=== PATIENT | female | born 1945 | race Caucasian/White ===

== ENCOUNTER 2019-07-08 04:17 | Inpatient (IN) ==
[2019-07-08] MEDS ORDERED: MORPHINE 4 MG/1 ML VIAL IV STA (06:09)
[2019-07-08] MEDS ORDERED: ONDANSETRON 4 MG/2 ML VIAL IV ONE (06:09)
[2019-07-08 07:26] LABS: Basophils % 0.5 % (0.0-0.8); Eosinophils % 0.2 % (0.00-10.9); Hematocrit 35.4 VOL% (35.7-47.0); Immature Granulocytes % 0.2 %; Immature Granulocytes Absolute 0.01 #; Lymphocytes # 0.9 10*3/uL (1.4-4.0); Lymphocytes % 15.1 % (21.3-54.2); Mean Corpuscular HGB Conc 31.1 GM/DL (32-36); Mean Corpuscular Volume 85.9 FL (87-102); Mean Platelet Volume 14.3 FL (9.6-12.0); Monocytes % 14.9 % (1.7-12.7); Neutrophils % 69.1 % (38.7-73.9); Platelet Count 92 T/CUMM (130-400); Red Blood Count 4.12 MC/CUMM (3.8-5.5); Red Cell Distribution Width 13.2 % (9.3-17.3); White Blood Count 5.6 T/CUMM (4-12)
[2019-07-08 07:44] LABS: Albumin 3.8 G/DL (3.4-5.0); Anisocytosis 1+; Calcium 9.2 MG/DL (8.5-10.1); Osmolality,Calculated 289.7 MOS/KG (273-304); Platelet Estimate Decreased; Poikilocytosis Slight; Total Protein 6.8 G/DL (6.4-8.3)
[2019-07-08 08:19] LABS: INR 0.9
[2019-07-08] MEDS: MORPHINE 4 MG/1 ML VIAL IV PRN (09:43)
[2019-07-08] MEDS: PANTOPRAZOLE 40 MG TABLET PO SCH (09:44)
[2019-07-08] MEDS: SODIUM CHLORIDE 0.9% 1,000 ML IV SCH (10:59)
[2019-07-08] MEDS ORDERED: VANCOMYCIN 1,000 MG VIAL ONE (17:01)
[2019-07-08] MEDS ORDERED: ceFAZolin 1,000 MG VIAL ONE (17:01)
[2019-07-08] MEDS ORDERED: BACITRACIN 50,000 UNIT VIAL ONE ×2 (17:45→17:50)
[2019-07-08] MEDS: ceFAZolin 1,000 MG in SYRINGE 1 EACH IV SCH (17:49)
[2019-07-08] MEDS ORDERED: VANCOMYCIN INJ 1,000 MG in SODIUM CHLORIDE 0.9% 250 ML IV ONE (18:00)
[2019-07-08] MEDS ORDERED: LIDOCAINE 2% 5 ML VIAL ONE (19:22)
[2019-07-08] MEDS ORDERED: TRANEXAMIC ACID 1,000 MG/10 ML VIAL ONE (19:23)
[2019-07-08] MEDS ORDERED: ACETAMINOPHEN 1,000 MG/100 ML VIAL IV ONE (19:23)
[2019-07-08] MEDS ORDERED: PHENYLEPHRINE 1 MG/10 ML SYRINGE IV ONE (19:23)
[2019-07-08] MEDS ORDERED: MIDAZOLAM 2 MG/2 ML VIAL ONE (19:23)
[2019-07-08] MEDS ORDERED: ROCURONIUM 100 MG/10 ML VIAL IV ONE (19:23)
[2019-07-08] MEDS ORDERED: ONDANSETRON 4 MG/2 ML VIAL ONE (19:23)
[2019-07-08] MEDS ORDERED: LACTATED RINGERS 1,000 ML IV ONE (19:23)
[2019-07-08] MEDS ORDERED: SUCCINYLCHOLINE 200 MG/10 ML VIAL ONE (19:23)
[2019-07-08] MEDS ORDERED: fentaNYL 100 MCG/2 ML VIAL ONE (19:23)
[2019-07-08] MEDS ORDERED: GLYCOPYRROLATE 0.4 MG/2 ML VIAL ONE (19:23)
[2019-07-08] MEDS ORDERED: SEVOFLURANE 1 UNIT/15 MINUTE INH ONE (19:23)
[2019-07-08] MEDS: ONDANSETRON 4 MG/2 ML VIAL IV PRN (20:19)
[2019-07-08] MEDS: APIXABAN 2.5 MG TABLET PO SCH (21:24)
[2019-07-09] MEDS: ONDANSETRON 4 MG/2 ML VIAL IV PRN ×2 (00:02→08:05)
[2019-07-09] MEDS: MORPHINE 4 MG/1 ML VIAL IV PRN (00:02)
[2019-07-09] MEDS: ceFAZolin 1,000 MG in SYRINGE 1 EACH IV SCH ×3 (00:43→19:11)
[2019-07-09] MEDS: SODIUM CHLORIDE 0.9% 1,000 ML IV SCH ×2 (04:09→17:27)
[2019-07-09 05:18] LABS: Basophils % 0.3 % (0.0-0.8); Eosinophils % 0.6 % (0.00-10.9); Hematocrit 33.9 VOL% (35.7-47.0); Immature Granulocytes % 0.5 %; Immature Granulocytes Absolute 0.03 #; Lymphocytes # 0.5 10*3/uL (1.4-4.0); Lymphocytes % 7.9 % (21.3-54.2); Mean Corpuscular HGB Conc 29.5 GM/DL (32-36); Mean Corpuscular Volume 89.2 FL (87-102); Monocytes % 11.9 % (1.7-12.7); Neutrophils % 78.8 % (38.7-73.9); Red Cell Distribution Width 13.4 % (9.3-17.3); White Blood Count 6.2 T/CUMM (4-12)
[2019-07-09 05:32] LABS: Calcium 8.3 MG/DL (8.5-10.1)
[2019-07-09 05:38] LABS: Platelet Count 83 T/CUMM (130-400)
[2019-07-09 05:53] LABS: Hypochromasia 1+; Microcytosis 1+; Ovalocytes Few; Platelet Estimate Decreased
[2019-07-09] MEDS ORDERED: PROMETHAZINE 25 MG/1 ML VIAL IM ONE (09:18)
[2019-07-09] MEDS: PANTOPRAZOLE 40 MG TABLET PO SCH (10:45)
[2019-07-09] MEDS: APIXABAN 2.5 MG TABLET PO SCH ×2 (10:45→21:24)
[2019-07-09] MEDS: POTASSIUM CHLORIDE 20 MEQ TABLET PO PRN ×3 (16:00→21:24)
[2019-07-09] MEDS ORDERED: PROMETHAZINE 25 MG/1 ML VIAL IM PRN (20:49)
[2019-07-10] MEDS: ceFAZolin 1,000 MG in SYRINGE 1 EACH IV SCH ×3 (02:59→18:29)
[2019-07-10 05:09] LABS: Calcium 8.6 MG/DL (8.5-10.1); Osmolality,Calculated 294.1 MOS/KG (273-304)
[2019-07-10 06:30] LABS: Basophils % 0.3 % (0.0-0.8); Eosinophils # 0.1 10*3/uL (0.0-0.87); Eosinophils % 0.8 % (0.00-10.9); Hematocrit 29.5 VOL% (35.7-47.0); Hemoglobin 8.8 GM/DL (12.0-16.0); Immature Granulocytes % 0.4 %; Immature Granulocytes Absolute 0.03 #; Lymphocytes # 0.6 10*3/uL (1.4-4.0); Mean Corpuscular HGB Conc 29.8 GM/DL (32-36); Mean Corpuscular Volume 88.9 FL (87-102); Mean Platelet Volume 13.9 FL (9.6-12.0); Neutrophils % 76.5 % (38.7-73.9); Platelet Count 77 T/CUMM (130-400); Red Blood Count 3.32 MC/CUMM (3.8-5.5); Red Cell Distribution Width 13.4 % (9.3-17.3); White Blood Count 7.3 T/CUMM (4-12)
[2019-07-10] MEDS: SODIUM CHLORIDE 0.9% 1,000 ML IV SCH ×2 (06:38→18:25)
[2019-07-10 06:54] LABS: Eosinophils 1 % (0-10); Hypochromasia 1+; Lymphocytes 4 % (20-55); Platelet Estimate Decreased; Segmented Neutrophils 82 % (50-85); Total Cells Counted 100
[2019-07-10 06:56] LABS: Microcytosis 1+
[2019-07-10] MEDS: PANTOPRAZOLE 40 MG TABLET PO SCH (10:26)
[2019-07-10] MEDS: APIXABAN 2.5 MG TABLET PO SCH ×2 (10:26→21:06)
[2019-07-10] MEDS ORDERED: TUBERCULIN SKIN TEST 0.1 ML SYRINGE INTRADERM ONE (10:37)
[2019-07-11] MEDS: ceFAZolin 1,000 MG in SYRINGE 1 EACH IV SCH ×2 (02:49→11:00)
[2019-07-11] MEDS: APIXABAN 2.5 MG TABLET PO SCH (09:41)
[2019-07-11] MEDS: PANTOPRAZOLE 40 MG TABLET PO SCH (09:41)
[2019-07-11] MEDS: SODIUM CHLORIDE 0.9% 1,000 ML IV SCH (09:42)
[2019-07-11] MEDS ORDERED: MAGNESIUM HYDROXIDE SUSP 30 ML UDCUP PO ONE (11:16)
[2019-07-11 11:34] VITALS: BP 114/62
== END 2019-07-11 11:42 | DRG 470 ==
LOC: EDBD → EDUNIT# → N.ED 04:17 → N.EDINP 06:29 → SUPCPDRO 06:29 → N.EDINP 07:45 → N.3E 07:54
PROVIDERS: ADMIT Internal Medicine; ATTEND Internal Medicine

== ENCOUNTER 2021-10-13 09:24 | Inpatient (IN) ==
[2021-10-13] MEDS ORDERED: HYDROmorphone 2 MG/1 ML VIAL IV STA (09:28)
[2021-10-13] MEDS ORDERED: SODIUM CHLORIDE 0.9% 1,000 ML IV STA (09:28)
[2021-10-13] MEDS ORDERED: ONDANSETRON 4 MG/2 ML VIAL IV STA (09:28)
[2021-10-13 10:55] LABS: Bacteria,Urine Occasional /HPF (Few); Bilirubin,Urine Negative (Negative); Blood, Urine Small mg/dL (Negative); Glucose,Urine (UA) Negative (Negative); Hyaline Casts,Urine 1 /LPF (0-3); Ketones,Urine Negative (Negative); Mucus,Urine Occasional /LPF (Occasional); Nitrite,Urine Negative (Negative); Protein,Urine Negative; RBC,Urine 2 /HPF (0-4); Squamous Epithelial Cell,Urine Occasional /HPF (0-10); Urine Appearance CLEAR (Clear); Urine Color Straw (Yellow); Urine Specific Gravity 1.008 (1.001-1.035); Urine Urobilinogen < 2.0 EU/DL (<2.0)
[2021-10-13 11:04] LABS: Basophils % 0.2 % (0.0-0.8); Eosinophils % 0.1 % (0.00-10.9); Hematocrit 30.2 VOL% (35.7-47.0); Hemoglobin 9.2 GM/DL (12.0-16.0); Immature Granulocytes % 0.9 %; Immature Granulocytes Absolute 0.08 #; Lymphocytes # 0.4 10*3/uL (1.4-4.0); Lymphocytes % 4.7 % (21.3-54.2); Mean Corpuscular HGB Conc 30.5 GM/DL (32-36); Mean Platelet Volume 14.4 FL (9.6-12.0); Neutrophils % 84.1 % (38.7-73.9); Platelet Count 209 T/CUMM (130-400); Red Blood Count 3.64 MC/CUMM (3.8-5.5); White Blood Count 9.2 T/CUMM (4-12)
[2021-10-13 11:05] LABS: PT Patient Result 10.8 SECS (10.5-12.0); Partial Thromboplastin Time 21.2 SECS (23.8-32.1)
[2021-10-13 11:14] LABS: Bilirubin,Total 1.1 MG/DL (0.20-1.00); Calcium 8.7 MG/DL (8.5-10.1); Osmolality,Calculated 284.1 MOS/KG (273-304); Total Protein 6.6 G/DL (6.4-8.2)
[2021-10-13] MEDS ORDERED: GLUCAGON 1 MG VIAL IM PRN (11:18)
[2021-10-13] MEDS ORDERED: hydrALAZINE 20 MG/1 ML VIAL IV PRN (11:18)
[2021-10-13] MEDS ORDERED: DEXTROSE 50% 25 GM/50 ML SYRINGE IV PRN (11:18)
[2021-10-13 11:30] LABS: Lymphocytes 7 % (20-55); Segmented Neutrophils 83 % (50-85); Total Cells Counted 100
[2021-10-13 11:31] LABS: Platelet Estimate Decreased
[2021-10-13 11:33] LABS: Hypochromia 1+
[2021-10-13 11:34] LABS: Microcytosis 1+
[2021-10-13] MEDS: LACTATED RINGERS 1,000 ML IV SCH (12:15)
[2021-10-13] MEDS: ONDANSETRON 4 MG/2 ML VIAL IV PRN ×3 (12:40→20:52)
[2021-10-13] MEDS ORDERED: INFLUENZA VIRUS VACCINE 0.5 ML SYRINGE IM ONE (15:25)
[2021-10-13] MEDS: DOCUSATE SODIUM 100 MG CAPSULE PO SCH (20:52)
[2021-10-13] MEDS: MORPHINE 2 MG/1 ML SYRINGE IV PRN (21:12)
[2021-10-14] MEDS: MORPHINE 2 MG/1 ML SYRINGE IV PRN (04:12)
[2021-10-14] MEDS: LACTATED RINGERS 1,000 ML IV SCH ×2 (04:36→11:15)
[2021-10-14 05:47] LABS: Basophils % 0.3 % (0.0-0.8); Eosinophils % 0.3 % (0.00-10.9); Hematocrit 26.2 VOL% (35.7-47.0); Immature Granulocytes % 0.7 %; Immature Granulocytes Absolute 0.05 #; Lymphocytes # 0.6 10*3/uL (1.4-4.0); Mean Corpuscular HGB Conc 30.5 GM/DL (32-36); Mean Corpuscular Volume 83.4 FL (87-102); Mean Platelet Volume 13.8 FL (9.6-12.0); Monocytes % 13.1 % (1.7-12.7); Neutrophils % 76.6 % (38.7-73.9); Platelet Count 171 T/CUMM (130-400); Red Blood Count 3.14 MC/CUMM (3.8-5.5); Red Cell Distribution Width 13.2 % (9.3-17.3)
[2021-10-14 06:04] LABS: Calcium 8.4 MG/DL (8.5-10.1); Potassium 3.6 MMOL/L (3.5-5.1)
[2021-10-14 06:07] LABS: Hypochromia Slight; Platelet Estimate Normal
[2021-10-14] MEDS ORDERED: BACITRACIN OINT 0.9 GM PACK TOP ONE (06:41)
[2021-10-14] MEDS ORDERED: BUPIVACAINE SPINAL 0.75% 2 ML AMP SPINAL ONE (07:39)
[2021-10-14] MEDS ORDERED: LIDOCAINE 2% 5 ML VIAL ONE (07:39)
[2021-10-14] MEDS ORDERED: DEXMEDETOMIDINE 200 MCG/2 ML VIAL ONE (07:39)
[2021-10-14] MEDS ORDERED: ONDANSETRON 4 MG/2 ML VIAL ONE (07:40)
[2021-10-14] MEDS ORDERED: DEXAMETHASONE 4 MG/1 ML VIAL ONE ×2 (07:42→08:00)
[2021-10-14] MEDS ORDERED: LIDOCAINE 1% 5 ML VIAL ONE (08:00)
[2021-10-14] MEDS ORDERED: ROPIVACAINE 0.5% 30 ML VIAL ONE (08:00)
[2021-10-14] MEDS ORDERED: DEXTROSE 10% 250 ML BAG IV PRN (08:30)
[2021-10-14] MEDS ORDERED: KETAMINE 500 MG/10 ML VIAL ONE (08:32)
[2021-10-14] MEDS ORDERED: PANTOPRAZOLE 40 MG TABLET PO SCH (09:00)
[2021-10-14] MEDS ORDERED: TRANEXAMIC ACID 1,000 MG/10 ML VIAL ONE (09:13)
[2021-10-14] MEDS ORDERED: ZALEPLON 5 MG CAPSULE PO PRN (10:05)
[2021-10-14] MEDS ORDERED: MAGNESIUM HYDROXIDE SUSP 30 ML UDCUP PO PRN (10:05)
[2021-10-14 10:32] LABS: Hematocrit 24.5 VOL% (35.7-47.0); Hemoglobin 7.6 GM/DL (12.0-16.0)
[2021-10-14] MEDS ORDERED: SODIUM CHLORIDE 0.9% 1,000 ML IV PRN (10:46)
[2021-10-14] MEDS: DOCUSATE SODIUM 100 MG CAPSULE PO SCH ×2 (11:12→21:26)
[2021-10-14] MEDS: ONDANSETRON 4 MG/2 ML VIAL IV PRN (13:12)
[2021-10-14] MEDS ORDERED: INFLUENZA VIRUS VACCINE 0.5 ML SYRINGE IM ONE (13:26)
[2021-10-14] MEDS ORDERED: ONDANSETRON 4 MG/2 ML VIAL IV ONE (13:54)
[2021-10-14] MEDS ORDERED: TUBERCULIN SKIN TEST 0.1 ML SYRINGE INTRADERM ONE (14:14)
[2021-10-15] MEDS: LACTATED RINGERS 1,000 ML IV SCH (04:12)
[2021-10-15] MEDS: FONDAPARINUX 2.5 MG/0.5 ML SYRINGE SUBCUT SCH (05:14)
[2021-10-15 05:29] LABS: Basophils % 0.2 % (0.0-0.8); Hematocrit 35.2 VOL% (35.7-47.0); Immature Granulocytes % 0.7 %; Immature Granulocytes Absolute 0.09 #; Lymphocytes # 0.5 10*3/uL (1.4-4.0); Lymphocytes % 4.5 % (21.3-54.2); Mean Corpuscular HGB Conc 31.3 GM/DL (32-36); Mean Corpuscular Volume 83.8 FL (87-102); Neutrophils % 82.6 % (38.7-73.9); Platelet Count 171 T/CUMM (130-400); Red Cell Distribution Width 13.8 % (9.3-17.3)
[2021-10-15 05:31] LABS: White Blood Count 12.1 T/CUMM (4-12)
[2021-10-15 05:33] LABS: Calcium 8.4 MG/DL (8.5-10.1); Osmolality,Calculated 279.4 MOS/KG (273-304); Potassium 3.6 MMOL/L (3.5-5.1)
[2021-10-15 05:41] LABS: % Iron Saturation 8.9 % (18-50); Ferritin 142.1 ng/mL (8-252)
[2021-10-15 05:42] LABS: Anisocytosis 2+; Lymphocytes 6 % (20-55); Macrocytosis Slight; Microcytosis Slight; Platelet Estimate Normal; Segmented Neutrophils 80 % (50-85); Total Cells Counted 100
[2021-10-15 05:43] LABS: Target Cells Few
[2021-10-15] MEDS ORDERED: ONDANSETRON ODT 4 MG TABLET PO PRN (07:50)
[2021-10-15] MEDS ORDERED: ENOXAPARIN 40 MG/0.4 ML SYRINGE SUBCUT SCH (09:00)
[2021-10-15] MEDS: CHOLECALCIFEROL 1,000 UNIT TABLET PO SCH (09:22)
[2021-10-15] MEDS: DOCUSATE SODIUM 100 MG CAPSULE PO SCH (09:22)
[2021-10-15] MEDS: amLODIPine 2.5 MG TABLET PO SCH (09:22)
[2021-10-15] MEDS: POLYETHYLENE GLYCOL POWDER 17 GM PACK PO SCH (09:22)
[2021-10-15] MEDS: FERROUS SULFATE 325 MG TABLET PO SCH ×2 (09:22→18:25)
[2021-10-16] MEDS: FONDAPARINUX 2.5 MG/0.5 ML SYRINGE SUBCUT SCH (05:09)
[2021-10-16] MEDS: DOCUSATE SODIUM 100 MG CAPSULE PO SCH ×3 (05:12→20:32)
[2021-10-16 05:43] LABS: Basophils % 0.3 % (0.0-0.8); Eosinophils % 0.3 % (0.00-10.9); Hematocrit 34.6 VOL% (35.7-47.0); Hemoglobin 10.8 GM/DL (12.0-16.0); Immature Granulocytes % 0.6 %; Immature Granulocytes Absolute 0.07 #; Lymphocytes # 0.6 10*3/uL (1.4-4.0); Lymphocytes % 4.6 % (21.3-54.2); Mean Corpuscular HGB Conc 31.2 GM/DL (32-36); Mean Corpuscular Volume 84.4 FL (87-102); Mean Platelet Volume 13.4 FL (9.6-12.0); Monocytes % 9.6 % (1.7-12.7); Neutrophils % 84.6 % (38.7-73.9); Platelet Count 160 T/CUMM (130-400); Red Cell Distribution Width 14.1 % (9.3-17.3); White Blood Count 12.5 T/CUMM (4-12)
[2021-10-16 06:29] LABS: Anisocytosis Slight; Band Neutrophils 7 % (0-10); Eosinophils 3 % (0-10); Lymphocytes 5 % (20-55); Platelet Estimate Normal; Segmented Neutrophils 74 % (50-85); Total Cells Counted 100
[2021-10-16] MEDS ORDERED: SENNA 8.6 MG TABLET PO PRN (07:47)
[2021-10-16] MEDS ORDERED: hydrOXYzine HCL 10 MG TABLET PO PRN (07:49)
[2021-10-16] MEDS: CHOLECALCIFEROL 1,000 UNIT TABLET PO SCH (08:58)
[2021-10-16] MEDS: amLODIPine 2.5 MG TABLET PO SCH (08:58)
[2021-10-16] MEDS: POLYETHYLENE GLYCOL POWDER 17 GM PACK PO SCH (08:59)
[2021-10-16] MEDS: FERROUS SULFATE 325 MG TABLET PO SCH ×2 (08:59→16:20)
[2021-10-17] MEDS: FONDAPARINUX 2.5 MG/0.5 ML SYRINGE SUBCUT SCH (05:00)
[2021-10-17 07:16] LABS: Basophils % 0.2 % (0.0-0.8); Eosinophils # 0.1 10*3/uL (0.0-0.87); Eosinophils % 0.9 % (0.00-10.9); Hematocrit 34.5 VOL% (35.7-47.0); Hemoglobin 10.5 GM/DL (12.0-16.0); Immature Granulocytes % 0.8 %; Immature Granulocytes Absolute 0.07 #; Lymphocytes # 0.6 10*3/uL (1.4-4.0); Lymphocytes % 6.4 % (21.3-54.2); Mean Corpuscular HGB Conc 30.4 GM/DL (32-36); Mean Corpuscular Volume 84.8 FL (87-102); Monocytes % 8.9 % (1.7-12.7); Neutrophils % 82.8 % (38.7-73.9); Platelet Count 175 T/CUMM (130-400); Red Blood Count 4.07 MC/CUMM (3.8-5.5); Red Cell Distribution Width 14.3 % (9.3-17.3); White Blood Count 9.1 T/CUMM (4-12)
[2021-10-17 07:42] LABS: Calcium 8.7 MG/DL (8.5-10.1); Osmolality,Calculated 281.3 MOS/KG (273-304); Potassium 3.4 MMOL/L (3.5-5.1)
[2021-10-17 07:43] LABS: Anisocytosis Slight; Platelet Estimate Normal
[2021-10-17] MEDS: amLODIPine 2.5 MG TABLET PO SCH (08:34)
[2021-10-17] MEDS: POLYETHYLENE GLYCOL POWDER 17 GM PACK PO SCH (08:34)
[2021-10-17] MEDS: CHOLECALCIFEROL 1,000 UNIT TABLET PO SCH (08:34)
[2021-10-17] MEDS: DOCUSATE SODIUM 100 MG CAPSULE PO SCH ×2 (08:34→20:46)
[2021-10-17] MEDS: FERROUS SULFATE 325 MG TABLET PO SCH ×2 (08:35→18:28)
[2021-10-17] MEDS ORDERED: SIMETHICONE CHEW 125 MG TABLET PO PRN (10:45)
[2021-10-17] MEDS: POTASSIUM CHLORIDE 20 MEQ TABLET PO PRN ×3 (15:40→20:46)
[2021-10-18] MEDS: FONDAPARINUX 2.5 MG/0.5 ML SYRINGE SUBCUT SCH (05:55)
[2021-10-18 06:41] LABS: Basophils % 0.4 % (0.0-0.8); Eosinophils # 0.2 10*3/uL (0.0-0.87); Eosinophils % 2.3 % (0.00-10.9); Hematocrit 31.4 VOL% (35.7-47.0); Hemoglobin 9.7 GM/DL (12.0-16.0); Immature Granulocytes % 0.7 %; Immature Granulocytes Absolute 0.05 #; Lymphocytes # 0.6 10*3/uL (1.4-4.0); Lymphocytes % 8.5 % (21.3-54.2); Mean Corpuscular HGB Conc 30.9 GM/DL (32-36); Mean Corpuscular Volume 85.6 FL (87-102); Mean Platelet Volume 14.1 FL (9.6-12.0); Monocytes % 10.8 % (1.7-12.7); Neutrophils % 77.3 % (38.7-73.9); Platelet Count 153 T/CUMM (130-400); Red Blood Count 3.67 MC/CUMM (3.8-5.5); Red Cell Distribution Width 14.3 % (9.3-17.3); White Blood Count 6.9 T/CUMM (4-12)
[2021-10-18 07:04] LABS: Calcium 8.3 MG/DL (8.5-10.1); Osmolality,Calculated 282.1 MOS/KG (273-304); Potassium 4.3 MMOL/L (3.5-5.1)
[2021-10-18] MEDS: amLODIPine 2.5 MG TABLET PO SCH (08:03)
[2021-10-18] MEDS: CHOLECALCIFEROL 1,000 UNIT TABLET PO SCH (08:03)
[2021-10-18] MEDS: DOCUSATE SODIUM 100 MG CAPSULE PO SCH (08:03)
[2021-10-18] MEDS: FERROUS SULFATE 325 MG TABLET PO SCH (08:04)
[2021-10-18] MEDS: POLYETHYLENE GLYCOL POWDER 17 GM PACK PO SCH (08:05)
[2021-10-18] MEDS ORDERED: INFLUENZA VIRUS VACCINE 0.5 ML SYRINGE IM ONE (10:30)
[2021-10-18 11:37] VITALS: BP 127/68
== END 2021-10-18 13:20 | disposition swing bed (61) | DRG 481 ==
LOC: N.ED 09:24 → N.EDINP 10:01 → SUATTDRO 10:01 → N.3E 13:42
PROVIDERS: ADMIT Internal Medicine; ATTEND Internal Medicine